=== PATIENT | female | born 1975 | race Two or more races ===

== ENCOUNTER 2018-08-17 02:14 | Emergency (ER) | payer OTHER ==
[~2018-08-17] VITALS: Ht 165.1 cm; Wt 90.9 kg
[~2018-08-17 02:14] MED LIST: PRED50TA PO; PSEU60TA94 PO
[2018-08-17] MEDS ORDERED: ALBU8HFA PO (04:11)
[2018-08-17] MEDS ORDERED: DOXY100C43 PO (04:11)
[2018-08-17] MEDS ORDERED: PRED20TA PO (04:11)
[2018-08-17] MEDS ORDERED: DOXYCYCLINE 100MG CAPSULE PO STA (04:15)
[2018-08-17] MEDS ORDERED: ipratropium/albuterol 3ml nebule NEB ONE (04:15)
[2018-08-17 04:50] VITALS: BP 120/61
== END 2018-08-17 04:52 | disposition home or self-care (01) ==
LOC: ER 02:14
DX: J20.9 Acute bronchitis, unspecified (principal); J45.909 Unspecified asthma, uncomplicated; Z87.01 Personal history of pneumonia (recurrent); Z79.899 Other long term (current) drug therapy
CPT/HCPCS: 94640; 94760; 99283